=== PATIENT | female | born 1945 | race Caucasian/White ===

== ENCOUNTER 2018-06-12 15:39 | Inpatient (IN) | payer MEDICARE, OTHER ==
[~2018-06-12] VITALS: Ht 157.5 cm; Wt 76.2 kg
[2018-06-12] MEDS ORDERED: predniSONE 20 MG TABLET PO ONE (16:00)
[2018-06-12] MEDS ORDERED: ALBUTEROL FS 2.5 MG/3 ML VIAL.NEB CONTNEB ONE (16:00)
[2018-06-12] MEDS ORDERED: IBUPROFEN 600 MG TABLET PO ONE ×2 (16:00→16:36)
[2018-06-12] MEDS ORDERED: ALBUTEROL FS 2.5 MG/3 ML VIAL.NEB ONE (16:01)
[2018-06-12] MEDS ORDERED: predniSONE 20 MG TABLET ONE (16:11)
[2018-06-12 16:40] LABS: BASOPHILS # (AUTO) 0.1 /CMM (0.0-0.2); BASOPHILS % (AUTO) 0.5 % (0.0-2.0); EOSINOPHILS % (AUTO) 2.9 % (0.0-6.0); HEMATOCRIT 38 % (33-45); HEMOGLOBIN 12.6 g/dL (11.5-14.8); LYMPHOCYTES # (AUTO) 1.5 /CMM (0.8-4.8); LYMPHOCYTES % (AUTO) 13.9 % (20.0-44.0); MEAN CORPUSCULAR HGB CONC 33 g/dl (31.0-36.0); MEAN CORPUSCULAR VOLUME 90 fL (82-100); MONOCYTES # (AUTO) 0.7 /CMM (0.1-1.30); MONOCYTES % (AUTO) 6.5 % (2.0-12.0); NEUTROPHILS # (AUTO) 8.4 /CMM (1.8-8.9); NEUTROPHILS % (AUTO) 76.2 % (43.0-81.0); PLATELET COUNT (AUTO) 270 /CMM (150-450); RED BLOOD CELL COUNT(AUTO) 4.22 MIL/uL (4.0-5.2)
[2018-06-12] MEDS ORDERED: CARV12.52 PO (16:42)
[2018-06-12] MEDS ORDERED: ASPI-1169 PO (16:42)
[2018-06-12] MEDS ORDERED: GUAI120S17 PO (16:42)
[2018-06-12] MEDS ORDERED: ACET-868 PO (16:42)
[2018-06-12] MEDS ORDERED: CALC-469 PO (16:42)
[2018-06-12] MEDS ORDERED: FURO-145 PO (16:42)
[2018-06-12] MEDS ORDERED: VENL75TA4 PO (16:42)
[2018-06-12] MEDS ORDERED: ATOR40TA PO (16:42)
[2018-06-12] MEDS ORDERED: METO-357 PO (16:42)
[2018-06-12] MEDS ORDERED: ASPIRIN 325 MG TABLET ONE (16:42)
[2018-06-12] MEDS ORDERED: CLOP75TA15 PO (16:42)
[2018-06-12 16:44] LABS: CARBON DIOXIDE 33 mmol/L (21-32); CHLORIDE 100 mmol/L (98-107); CREATININE 1.1 mg/dL (0.6-1.3); GLUCOSE 100 mg/dL (74-106); POTASSIUM 3.8 mmol/L (3.5-5.1); SODIUM SERUM 138 mmol/L (136-145); UREA NITROGEN, BLOOD 14 mg/dL (7-18)
[2018-06-12 16:50] LABS: ALANINE AMINOTRANSFERASE 31 U/L (12-78); ALBUMIN 3.6 g/dL (3.4-5.0); ALKALINE PHOSPHATASE 101 U/L (46-116); ASPARTATE AMINOTRANSFERASE 22 U/L (15-37); BILIRUBIN,DIRECT 0.1 mg/dL (0.0-0.2); BILIRUBIN,TOTAL 0.5 mg/dL (0.2-1.0); LIPASE 113 U/L (73-393); TOTAL PROTEIN, SERUM 6.5 g/dL (6.4-8.2)
[2018-06-12] MEDS ORDERED: IV NS 0.9% 500 ML BAG IV ONE (17:00)
[2018-06-12] MEDS ORDERED: ASPIRIN 325 MG TABLET PO ONE (17:00)
--- NOTE | 2018-06-12 17:01 | NUR ---
MICHELE WAS CALLED. ON CALLED WAS PAGED
--- NOTE | 2018-06-12 17:30 | NUR ---
CALLED [facility] FOR TELE BED
--- NOTE | 2018-06-12 17:52 | NUR ---
CALLED [facility]. DIRECTOR PRIVATE MUSIC THERAPY AGENCY NUTRITION ASSISTANT WAS PAGED
--- NOTE | 2018-06-12 19:22 | NUR ---
TELE BED 314-2 GIVEN
[2018-06-12] MEDS ORDERED: DOCUSATE SODIUM 100 MG CAPSULE PO PRN (19:30)
[2018-06-12] MEDS ORDERED: GUAIFENESIN/D-METHORPHAN HB 5 ML UDC PO PRN (19:30)
[2018-06-12] MEDS ORDERED: MAG HYDROX/AL HYDROX/SIMETH 30 ML UDC PO PRN (19:30)
[2018-06-12] MEDS ORDERED: ACETAMINOPHEN 325 MG TABLET PO PRN (19:30)
[2018-06-12] MEDS: ALBUTEROL FS 2.5 MG/0.5 ML VIAL.NEB NEB SCH (19:30)
[2018-06-12] MEDS: IPRATROPIUM NEB FS 0.5 MG/2.5 ML AMPUL.NEB NEB SCH (19:30)
[2018-06-12] MEDS ORDERED: NITROGLYCERIN 0.4 MG/TAB BOTTLE SL PRN (19:30)
[2018-06-12] MEDS ORDERED: MORPHINE SULFATE INJ 2 MG/ML DISP.SYRIN IV PRN (19:30)
[2018-06-12] MEDS ORDERED: ONDANSETRON HCL/PF 4 MG/2 ML VIAL IVP PRN (19:30)
--- NOTE | 2018-06-12 20:04 | NUR ---
REPORT GIVEN TO KRISSY CARL FOR MYRIAM; PT WILL BE TRANSPORTED TO 3RD FLOOR VIA ACLS PROTOCOL.
[2018-06-12 20:45] VITALS: BP 128/78
--- NOTE | 2018-06-12 20:45 | NUR ---
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 Patient is A/O x3. Skin intact, right inner buttock fluid blister, will follow up with wound consult in Am. Orientation to room, unit, staff. Call light within reach, safety measure explained, verbalized understanding.
[2018-06-12] MEDS: methylPREDNISolone SOD SUCC 40 MG/ML VIAL IV SCH (22:04)
[2018-06-13] VITALS (9 sets, daily range): BP systolic 106–139; BP diastolic 66–94
[2018-06-13 00:47] LABS: APPEARANCE,URINE CLEAR (CLEAR); BILIRUBIN,URINE NEGATIVE (NEGATIVE); BLOOD, URINE NEGATIVE Ery/uL (NEGATIVE); COLOR,URINE YELLOW (YELLOW); KETONES,URINE NEGATIVE (NEGATIVE); LEUKOCYTE ESTERASE ,URINE NEGATIVE (NEGATIVE); NITRITE, URINE NEGATIVE (NEGATIVE); PROTEIN,URINE NEGATIVE (NEGATIVE); UGLUCOSE NEGATIVE (NEGATIVE); UROBILINOGEN,URINE 0.2 EU/dL (0.2)
[2018-06-13] MEDS: ALBUTEROL FS 2.5 MG/0.5 ML VIAL.NEB NEB SCH ×4 (01:30→19:14)
[2018-06-13] MEDS: IPRATROPIUM NEB FS 0.5 MG/2.5 ML AMPUL.NEB NEB SCH ×4 (01:30→19:14)
--- NOTE | 2018-06-13 06:18 | NUR ---
TANDEM OPERATOR CLOSING NOTES Patient in bed, stable oxygen saturation on RA. Sinus rhythm in the tele monitor, denies chest pain. Ambulates independently, voiding without difficulty. Wound consult for right inner buttock blister, denies pain. Medical records from outside hosp to obtain, will endorse to oncoming RN.
--- NOTE | 2018-06-13 07:29 | NUR ---
RESPIRATORY CARE PROGRAM DIRECTOR OPENING NOTES RECEIVED PATIENT AWAKE IN BED WATCHING TV. IN NO ACUTE SIGNS OF DISTRESS. A/O X 3. ABLE TO MAKE NEEDS KNOWN, DENIES PAIN OR DISCOMFORTS AT THIS TIME. ON N ROOM AIR, RESPIRATION EVEN AND NON LABORED. ON TELEMONITORING WITH CURRENT READING OF SR WITH HR OF 91, NO C/O CARDIAC DISTRESS VOICED. IV ACCESS ON LFA INTACT AND PATENT. ALL SAFETY MEASURES IN PLACE. BED IN LOW LOCKED POSITION WITH SR UP X2. CALL LIGHT WITHIN REACH. WILL CONTINUE TO MONITOR PT ACCORDINGLY
[2018-06-13] MEDS ORDERED: CALCIUM CARBONATE 500 MG TAB.CHEW PO PRN (07:30)
[2018-06-13 08:01] LABS: BASOPHILS % (AUTO) 0.2 % (0.0-2.0); HEMATOCRIT 36 % (33-45); HEMOGLOBIN 11.8 g/dL (11.5-14.8); LYMPHOCYTES # (AUTO) 0.4 /CMM (0.8-4.8); LYMPHOCYTES % (AUTO) 6.5 % (20.0-44.0); MEAN CORPUSCULAR HGB CONC 33 g/dl (31.0-36.0); MEAN CORPUSCULAR VOLUME 90 fL (82-100); MONOCYTES # (AUTO) 0.1 /CMM (0.1-1.30); MONOCYTES % (AUTO) 1.4 % (2.0-12.0); NEUTROPHILS # (AUTO) 5.6 /CMM (1.8-8.9); NEUTROPHILS % (AUTO) 91.9 % (43.0-81.0); PLATELET COUNT (AUTO) 267 /CMM (150-450); RED BLOOD CELL COUNT(AUTO) 4.02 MIL/uL (4.0-5.2); WHITE BLOOD COUNT (AUTO) 6.1 K/uL (4.3-11.0)
[2018-06-13 08:16] LABS: CALCIUM, SERUM 9.2 mg/dL (8.5-10.1); CARBON DIOXIDE 26 mmol/L (21-32); CHLORIDE 103 mmol/L (98-107); GLUCOSE 175 mg/dL (74-106); PHOSPHORUS 3.9 mg/dL (2.5-4.9); POTASSIUM 4.3 mmol/L (3.5-5.1); SODIUM SERUM 140 mmol/L (136-145); UREA NITROGEN, BLOOD 14 mg/dL (7-18)
[2018-06-13] MEDS: ACETAMINOPHEN 325 MG TABLET PO PRN ×2 (08:36→22:01)
[2018-06-13] MEDS: ATORVASTATIN 40 MG TABLET PO SCH (08:37)
[2018-06-13] MEDS: ASPIRIN 81 MG TAB.CHEW PO SCH (08:37)
[2018-06-13] MEDS: CARVEDILOL 12.5 MG TABLET PO SCH ×2 (08:37→16:39)
[2018-06-13] MEDS: methylPREDNISolone SOD SUCC 40 MG/ML VIAL IV SCH ×2 (08:38→16:39)
[2018-06-13] MEDS: METOPROLOL SUCCINATE 50 MG TAB.SR.24H PO SCH (08:38)
[2018-06-13] MEDS: CLOPIDOGREL BISULFATE 75 MG TABLET PO SCH (08:41)
--- NOTE | 2018-06-13 08:42 | NUR ---
RN NOTES PATIENT COMPLAINT OF MILD HEADACHE AND REQUESTED TYLENOL. PRN TYLENOL 650MG PO GIVEN. WILL CONTINUE TO MONITOR.
[2018-06-13 08:48] LABS: CHOLESTEROL 247 mg/dL (<200); HDL CHOLESTEROL 58 mg/dL (40-60); LDL 160 mg/dL (0-99); TRIGLYCERIDES 174 mg/dL (30-150)
[2018-06-13] MEDS ORDERED: ASPIRIN 325 MG TABLET PO SCH ×2 (09:00)
[2018-06-13] MEDS ORDERED: ENOXAPARIN SODIUM 60 MG/0.6 ML DISP.SYRIN SQ SCH ×2 (09:00)
[2018-06-13] MEDS ORDERED: FUROSEMIDE 40 MG/4 ML VIAL IV SCH (09:00)
[2018-06-13] MEDS ORDERED: ENOXAPARIN SODIUM 40 MG/0.4 ML DISP.SYRIN SQ ONE (10:00)
[2018-06-13] MEDS: VENLAFAXINE 37.5 MG TABLET PO SCH ×2 (10:02→16:43)
--- NOTE | 2018-06-13 13:00 | NUR ---
REQUEST FOR PT DATA FAXED TO [facility] MILY JONES. PT
--- NOTE | 2018-06-13 14:38 | NUR ---
MSRN. PT REPORTING 08/16, CENTRAL CHEST PAIN, NON RADIATING. REPORTING HAVING HAD IT BEFORE AND TREATED WITH NITRO SPRAY BY EMT. PT VITALS TAKEN AND WNL. SKIN WARM AND DRY, NO OTHER COMPLAINTS. O2 VIA NC STARTED AT 4LPM, STAT 12 LEAD ORDERED, NITRO ADMINISTEREX1.
--- NOTE | 2018-06-13 15:22 | NUR ---
MSRN. PT NOW DENIES CHEST PAIN. NO OTHER SYMPTOMS. VITALS WNL AND CHARTED Q15X2. MADE AWARE.
--- NOTE | 2018-06-13 18:05 | NUR ---
TROP LEVELS REPORTED TO READINESS PARAPROFESSIONAL LW, NO FURTHER ACTION AT THIS TIME.
--- NOTE | 2018-06-13 18:06 | NUR ---
MSRN. PT REMAINS A&0X4, TOLERATING ROOM AIR WITHOUT DISTRESS. PT DENIES PAIN AT THIS TIME. PT WITH IVC AT LFA INTACT AND SL. PT REFUSED SKIN CARE OR SKIN ASSESSMENT TO BUTTOCK FOR ENDORSED BLISTER. PT BED IN LOWEST LOCKED POSITION WITH HANDRIALSX2 AND CALL REICH WITHIN REACH. ALL DAY NURSE DUTIES ATTENDED TO AND PT IS WITHOUT CONCERN OR COMPLAINT AT THIS TIME. WILL ENDORSE TO NIGHT NURSE AT BEDSIDE FOR MYRIAM.
[2018-06-13] MEDS: NICOTINE PATCH (14MG) 14 MG PATCH.TD24 TD SCH (20:25)
[2018-06-14] MEDS: ALBUTEROL FS 2.5 MG/0.5 ML VIAL.NEB NEB SCH ×4 (01:03→19:30)
[2018-06-14] MEDS: IPRATROPIUM NEB FS 0.5 MG/2.5 ML AMPUL.NEB NEB SCH ×4 (01:03→19:30)
[2018-06-14 01:36] VITALS: BP 142/79
--- NOTE | 2018-06-14 06:53 | NUR ---
MS RN NOTES AWAKE & RESPONSIVE. NOT IN ANY DISTRESS. NO SOB NOTED. DENIES ANY PAIN OR DISCOMFORT AT THIS TIME. WITH IV-HL PATENT & INTACT. MONITORED ACCORDINGLY. CALL LIGHT WITHIN REACH. BED IN LOWEST POSITION. SR UP X 2 FOR SAFETY. WILL ENDORSE TO NEXT SHIFT.
[2018-06-14 07:18] LABS: BASOPHILS % (AUTO) 0.1 % (0.0-2.0); HEMATOCRIT 32 % (33-45); HEMOGLOBIN 10.8 g/dL (11.5-14.8); LYMPHOCYTES # (AUTO) 0.8 /CMM (0.8-4.8); LYMPHOCYTES % (AUTO) 7.4 % (20.0-44.0); MEAN CORPUSCULAR HGB CONC 33 g/dl (31.0-36.0); MEAN CORPUSCULAR VOLUME 89 fL (82-100); MONOCYTES # (AUTO) 0.7 /CMM (0.1-1.30); MONOCYTES % (AUTO) 6.2 % (2.0-12.0); NEUTROPHILS # (AUTO) 9.9 /CMM (1.8-8.9); NEUTROPHILS % (AUTO) 86.3 % (43.0-81.0); PLATELET COUNT (AUTO) 261 /CMM (150-450); RED BLOOD CELL COUNT(AUTO) 3.67 MIL/uL (4.0-5.2); WHITE BLOOD COUNT (AUTO) 11.5 K/uL (4.3-11.0)
--- NOTE | 2018-06-14 07:30 | NUR ---
MS/RN Patient received Patient received from shift manager. Denies any chest pain or discomfort. Call light within reach, safety measurse in place. Will continue to monitor and ensure safety.
[2018-06-14 07:34] LABS: CALCIUM, SERUM 8.7 mg/dL (8.5-10.1); CARBON DIOXIDE 29 mmol/L (21-32); CHLORIDE 103 mmol/L (98-107); GLUCOSE 132 mg/dL (74-106); MAGNESIUM 2.2 mg/dL (1.8-2.4); POTASSIUM 4.1 mmol/L (3.5-5.1); SODIUM SERUM 140 mmol/L (136-145); UREA NITROGEN, BLOOD 22 mg/dL (7-18)
[2018-06-14 08:00] VITALS: BP_SYST 162; BP_SYST 169; BP_DIAS 92
[2018-06-14] MEDS: ATORVASTATIN 40 MG TABLET PO SCH (08:14)
[2018-06-14] MEDS: NICOTINE PATCH (14MG) 14 MG PATCH.TD24 TD SCH (08:14)
[2018-06-14] MEDS: METOPROLOL SUCCINATE 50 MG TAB.SR.24H PO SCH (08:14)
[2018-06-14] MEDS: ASPIRIN 81 MG TAB.CHEW PO SCH (08:14)
[2018-06-14] MEDS: CLOPIDOGREL BISULFATE 75 MG TABLET PO SCH (08:14)
[2018-06-14] MEDS: methylPREDNISolone SOD SUCC 40 MG/ML VIAL IV SCH ×2 (08:15→16:59)
[2018-06-14] MEDS: CARVEDILOL 12.5 MG TABLET PO SCH ×2 (08:15→16:59)
[2018-06-14] MEDS: ACETAMINOPHEN 325 MG TABLET PO PRN ×2 (08:15→22:11)
[2018-06-14] MEDS: ENOXAPARIN SODIUM 40 MG/0.4 ML DISP.SYRIN SQ SCH (08:20)
[2018-06-14] MEDS: VENLAFAXINE 37.5 MG TABLET PO SCH ×2 (08:23→16:59)
--- NOTE | 2018-06-14 08:26 | NUR ---
MS/RN Medications Morning medications administered along with tylenol 650mg for headache.
--- NOTE | 2018-06-14 09:46 | NUR ---
MS/RN Pain reassessment Per patient, headache improving, pain now rated as 2/10.
[2018-06-14] MEDS: VALSARTAN 80 MG TABLET PO SCH (11:28)
--- NOTE | 2018-06-14 11:32 | NUR ---
WOUND CARE CONSULT: PT ALLOWED LIMITED ASSESSMENT OF INNER BUTTOCKS. RT INNER BUTTOCK HAS VESICLES WITH SOME REDNESS, NO DRAINAGE, PRESENT ON ADMISSION. DEFER TO MD. PT IS AMBULATORY AND CONTINENT. WILL SEE PRN.
--- NOTE | 2018-06-14 11:47 | NUR ---
MS/RN S/R Dr Gonzales Seen by Dr Gonzales - patient to be scheduled for CT angiogram today. NPO from this point, consent forms signed and placed in front of chart. 18g heplock will be inserted by Tyrel (research and development technician)
[2018-06-14] MEDS ORDERED: IOHEXOL-350 100 ML VIAL IV ONE (12:14)
[2018-06-14] MEDS ORDERED: METOPROLOL TARTRATE INJ 5 MG/5 ML AMPUL ONE (12:15)
[2018-06-14] MEDS ORDERED: CT SWABBABLE VALVE TRANS SET 1 EA INFUS.SET MC ONE (12:15)
[2018-06-14] MEDS ORDERED: IV NS 0.9% 250 ML IV ONE (12:15)
[2018-06-14] MEDS ORDERED: METOPROLOL TARTRATE INJ 5 MG/5 ML AMPUL IVP ONE (12:30)
[2018-06-14] MEDS ORDERED: IV NS 0.9% 500 ML IV ONE (12:30)
--- NOTE | 2018-06-14 13:49 | NUR ---
Social service consult requested by STEVIE Trent for homelessness. Pt. is a 72 year old female who has a history of COPD and who came to [facility] ED evaluation of shortness of breath with wheezing. Per STEVIE Trent's note, pt. states that she recently left her board and care facility because she "did not like it, and wants placement." SW met with pt. bedside. Pt. is alert and oriented x 4. Pt. was sitting on her bed eating lunch. Pt. is cooperative with SW during the assessment. Pt. informed SW she came from [place] to visit her uncle, but it did not work out. Pt. states, she has been homeless for a week. Pt. is interested in going to a SNF placement if deemed appropriate. Pt. receives approximately $1200/ month in SSI. Pt. denies any drug, alcohol or tobacco use. Pt. denies any psychiatric diagnoses. Pt's emergency contact is her uncle Akhil Cotto . Pt. stated she would like to go to SNF before heading back to [place]. social service manager Cynthia Gunderson is coordinating SNF placement for the pt. No other social service needs are requested at this time. Homeless Patient Waiver Form to be signed by pt. upon discharge.
--- NOTE | 2018-06-14 15:37 | NUR ---
MS/RN CTA result Patient's CTA reported, calcium score of 946.
[2018-06-14 16:00] VITALS: BP 95/58
--- NOTE | 2018-06-14 17:58 | NUR ---
MS/RN S/B Kamilla Trent PUTTY MIXER Seen by PUTTY MIXER - await results of CTA, discharge planning tomorrow to [facility].
--- NOTE | 2018-06-14 19:50 | NUR ---
MS RN NOTE: PATIENT RESTING IN BED, NO ACUTE DISTRESS NOTED. BREATHING EVEN AND UNLABORED, NO SOB NOTED. IV TO LFA IN PLACE. ISOLATION PRECAUTION OBSERVED. BED LOCKED AND IN LOWEST POSITION, CALL LIGHT IN REACH, WILL CONTINUE TO MONITOR.
[2018-06-14 20:00] VITALS: BP 113/76
--- NOTE | 2018-06-14 22:15 | NUR ---
MS RN NOTE: PATIENT COMPLAINS OF HEADACHE 05/16 AND REQUEST FOR TYLENOL. TYLENOL 650MG ORAL GIVEN PER MD ORDER. WILL CONTINUE TO MONITOR.
[2018-06-15] MEDS: ALBUTEROL FS 2.5 MG/0.5 ML VIAL.NEB NEB SCH ×3 (01:30→13:08)
[2018-06-15] MEDS: IPRATROPIUM NEB FS 0.5 MG/2.5 ML AMPUL.NEB NEB SCH ×3 (01:30→13:08)
--- NOTE | 2018-06-15 06:30 | NUR ---
MS RN NOTE: PATIENT RESTING IN BED, NO ACUTE DISTRESS NOTED. BREATHING EVEN AND UNLABORED, NO SOB NOTED. IV TO LFA IN PLACE. ISOLATION PRECAUTION OBSERVED. BED LOCKED AND IN LOWEST POSITION, CALL LIGHT IN REACH, WILL ENDORSE TO DAY NURSE TO CONTINUE WITH PLAN OF CARE.
[2018-06-15 06:38] LABS: BASOPHILS % (AUTO) 0.3 % (0.0-2.0); EOSINOPHILS % (AUTO) 0.1 % (0.0-6.0); HEMATOCRIT 34 % (33-45); HEMOGLOBIN 11.3 g/dL (11.5-14.8); LYMPHOCYTES % (AUTO) 16.8 % (20.0-44.0); MEAN CORPUSCULAR HGB CONC 33 g/dl (31.0-36.0); MEAN CORPUSCULAR VOLUME 90 fL (82-100); MONOCYTES % (AUTO) 8.9 % (2.0-12.0); NEUTROPHILS # (AUTO) 8.6 /CMM (1.8-8.9); NEUTROPHILS % (AUTO) 73.9 % (43.0-81.0); PLATELET COUNT (AUTO) 225 /CMM (150-450); RED BLOOD CELL COUNT(AUTO) 3.81 MIL/uL (4.0-5.2); WHITE BLOOD COUNT (AUTO) 11.6 K/uL (4.3-11.0)
[2018-06-15 07:10] LABS: CALCIUM, SERUM 8.9 mg/dL (8.5-10.1); CARBON DIOXIDE 30 mmol/L (21-32); CHLORIDE 104 mmol/L (98-107); CREATININE 0.9 mg/dL (0.6-1.3); GLUCOSE 96 mg/dL (74-106); MAGNESIUM 2.3 mg/dL (1.8-2.4); PHOSPHORUS 2.6 mg/dL (2.5-4.9); POTASSIUM 4.2 mmol/L (3.5-5.1); SODIUM SERUM 140 mmol/L (136-145); UREA NITROGEN, BLOOD 26 mg/dL (7-18)
--- NOTE | 2018-06-15 07:37 | NUR ---
RN OPENING NOTE PT WAS RECEIVED RESTING IN BED AT LOWEST AND LOCKED POSITION WITH SIDE RAILS UP X2, A/O X3, BREATHING EVEN AND UNLABORED, NO S/S OR COMPLAINTS OF ANY DISTRESS OR PAIN NOTED AT THIS TIME, IV IS PATENT AND INTACT, SAFETY PRECAUTIONS IN PLACE, CALL LIGHT WITHIN REACH WILL MONITOR ACCORDINGLY.
[2018-06-15 08:00] VITALS: BP 111/60
[2018-06-15] MEDS: CLOPIDOGREL BISULFATE 75 MG TABLET PO SCH (08:17)
[2018-06-15] MEDS: ASPIRIN 81 MG TAB.CHEW PO SCH (08:18)
[2018-06-15] MEDS: VENLAFAXINE 37.5 MG TABLET PO SCH (08:18)
[2018-06-15] MEDS: methylPREDNISolone SOD SUCC 40 MG/ML VIAL IV SCH (08:18)
[2018-06-15] MEDS: ATORVASTATIN 40 MG TABLET PO SCH (08:18)
[2018-06-15 08:19] VITALS: BP 111/60
[2018-06-15] MEDS: CARVEDILOL 12.5 MG TABLET PO SCH (08:19)
[2018-06-15] MEDS: NICOTINE PATCH (14MG) 14 MG PATCH.TD24 TD SCH (08:19)
[2018-06-15] MEDS: VALSARTAN 80 MG TABLET PO SCH (08:19)
[2018-06-15] MEDS: ENOXAPARIN SODIUM 40 MG/0.4 ML DISP.SYRIN SQ SCH (08:23)
--- NOTE | 2018-06-15 11:50 | NUR ---
GABRIEL met with pt. bedside. Pt. is aware and agrees to go to [facility] located at [address] [place] [address] in [place]. [place] . Homeless patient Waiver form was signed by the pt. and a copy was placed in pt. chart. Addendum: 06/15/18 at 1152 by REY RIOS Homeless Discharge checklist was completed by GABRIEL.
[2018-06-15] MEDS ORDERED: LORAZEPAM 0.5 MG TABLET PO PRN (12:00)
--- NOTE | 2018-06-15 12:09 | NUR ---
RN NOTES PICTURES OF SKIN WERE TAKEN AND DOCUMENTED AT THIS TIME
[2018-06-15] MEDS ORDERED: ALBU2.5V13 NEB (12:42)
[2018-06-15] MEDS ORDERED: VALS80TA2 PO (12:42)
[2018-06-15] MEDS ORDERED: PRED20TA PO (12:42)
[2018-06-15] MEDS ORDERED: LORA0.5T PO (12:42)
[2018-06-15] MEDS: ACETAMINOPHEN 325 MG TABLET PO PRN (13:36)
--- NOTE | 2018-06-15 14:10 | NUR ---
RN NOTE REPORT GIVEN TO GABRIEL AT [facility] AT THIS TIME
--- NOTE | 2018-06-15 14:39 | NUR ---
DISCHARGE NOTE PT WAS D/C IN MEDICALLY STABLE CONDITION TO [facility] WHERE REPORT WAS GIVEN TO GABRIEL. ALL D/C PAPERWORK, EXITCARE, AND BELONGING LIST WERE SIGNED, DISCUSSED, AND HANDED TO THE EMT AND PATIENT. EMT CREW WAS HANDED PATIENT BELONGINGS. IV AND ID BAND WERE REMOVED. ALL SKIN ISSUES WERE DOCUMENTED AND PLACED IN THE CHART. ALL NEEDS WERE ATTENDED TO DURING HER STAY. PT LEFT IN STABLE CONDITION WITH AN ETA OF 15-30 MIN TO THE FACILITY.
== END 2018-06-15 18:11 | DRG 190 ==
LOC: ER 15:41 → TELE 19:24 → MED 06-13 09:10
PROVIDERS: ADMIT Registered Nurse; ATTEND Nurse Practitioner Acute Care
DX: J44.1 Chronic obstructive pulmonary disease with (acute) exacerbation (principal); I21.A1 Myocardial infarction type 2; J45.901 Unspecified asthma with (acute) exacerbation; I25.10 Atherosclerotic heart disease of native coronary artery without angina pectoris; Z59.0 Homelessness; E11.9 Type 2 diabetes mellitus without complications; I10 Essential (primary) hypertension; E78.5 Hyperlipidemia, unspecified; E66.9 Obesity, unspecified; Z68.30 Body mass index [BMI] 30.0-30.9, adult; D72.829 Elevated white blood cell count, unspecified; T38.0X5A Adverse effect of glucocorticoids and synthetic analogues, initial encounter; F41.9 Anxiety disorder, unspecified; I25.2 Old myocardial infarction; Z79.82 Long term (current) use of aspirin; Z82.49 Family history of ischemic heart disease and other diseases of the circulatory system; Z82.5 Family history of asthma and other chronic lower respiratory diseases; Z95.5 Presence of coronary angioplasty implant and graft
CPT/HCPCS: 36415; 71045-TC; 75574; 80048-TC; 80061-TC; 80076-TC; 81000-TC; 83690-TC; 83735-TC; 84100-TC; 84484-TC; 85025-TC; 87081-TC; 93307-TC; 94799-TC; G0378; J1650; J1940; J2920; J3490; J7030; J7050; Q9967